=== PATIENT | female | born 1965 | race Caucasian/White ===

== ENCOUNTER 2018-02-21 09:49 | Emergency (ER) | payer BC ==
[~2018-02-21] VITALS: Ht 167.6 cm; Wt 88.0 kg
[2018-02-21] MEDS ORDERED: HYDROCODONE/APAP 10MG-325MG TAB PO ONE ×2 (10:45→11:30)
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
[2018-02-21 14:30] VITALS: BP 147/90
[2018-02-21] MEDS ORDERED: LORAZEPAM 1 MG TAB PO ONE (14:30)
[2018-02-21] MEDS ORDERED: KETOROLAC TROMETHAMINE 60 MG/2 ML VIAL IM ONE (14:30)
== END 2018-02-21 14:45 | disposition home or self-care (01) ==
LOC: ER 09:49
DX: M54.2 Cervicalgia (principal); S16.1XXA Strain of muscle, fascia and tendon at neck level, initial encounter; M54.6 Pain in thoracic spine; M54.5 Low back pain; V43.52XA Car driver injured in collision with other type car in traffic accident, initial encounter; Y92.488 Other paved roadways as the place of occurrence of the external cause
CPT/HCPCS: 70450; 72125; 99284

== ENCOUNTER → 2018-03-06 | Outpatient (CLI) | payer BC ==
[~2018-03-06] MED LIST: LIDOCAINE HCL 1% LOCAL INJ 20 ML VIAL ONE
--- NOTE | 2018-03-06 12:32 | Diagnostic Imaging Report ---
PROCEDURE:BIOPSY THYROID FNA COMPARISON:[facility], US, OUTSIDE ULTRASOUND IMAGES, 02/24/2018, 13:49. INDICATIONS:ABN THYROID US FINDINGS: Written and verbal consent were obtained. Patient was placed supine. Preliminary ultrasound identified a dominant suspicious appearing right thyroid nodule (previously measured on the outside imaging to be 3.5 x 3.3 x 2.5 cm). A safe entry route was identified and the overlying skin was prepped and draped in usual sterile fashion. Lidocaine 1% was used for local pain control. A total of 4 passes were performed utilizing 25 gauge needles in different locations of the right thyroid nodule. The patient tolerated the procedure well and there were no immediate post-procedural complications. CONCLUSION: Successful ultrasound-guided FNA of a dominant right thyroid nodule. Pathologist has deemed the samples adequate for diagnosis. Cj Terrell D.O. Dictated by: Cj Terrell D.O. on 03/06/2018 at 12:40 Electronically approved by: Cj Terrell D.O. on 03/06/2018 at 12:40
--- NOTE | 2018-03-06 16:49 | Diagnostic Imaging Report ---
PROCEDURE:ULTRASOUND GUIDANCE FOR RIGHT THYROID NODULE FNA Informed consent was obtained. Ultrasound was used to identify the large right thyroid nodule. The overlying skin was prepped and draped in the usual sterile fashion. Lidocaine 1% was infiltrated into the subcutaneous tissues for local anesthesia. CONCLUSION:Ultrasound guidance for FNA of the right thyroid nodule. Cj Terrell D.O. Dictated by: Cj Terrell D.O. on 03/06/2018 at 16:57 Electronically approved by: Cj Terrell D.O. on 03/06/2018 at 16:57
== END ==
LOC: US 10:44
PROVIDERS: ATTEND Family Medicine
DX: E04.1 Nontoxic single thyroid nodule (principal)
CPT/HCPCS: 10022; 76942; 88112; 88172; 88173; 88305; J2001

== ENCOUNTER 2019-10-01 05:34 | Observation (INO) | payer BC, OTHER ==
[~2019-10-01] VITALS: Ht 167.6 cm; Wt 89.8 kg
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
[2019-10-01] MEDS ORDERED: KETOROLAC TROMETHAMINE 30 MG/ML VIAL IV STA (05:50)
[2019-10-01 06:10] LABS: BASOPHILS # (AUTO) 0.1 (0.0-0.1); BASOPHILS % 0.8 % (0.0-1.0); EOSINOPHILS # (AUTO) 0.1 (0.0-0.4); EOSINOPHILS % 1.4 % (0.0-6.0); HEMATOCRIT 43.2 % (34.2-44.1); HEMOGLOBIN 14.8 g/dL (12.0-16.0); LYMPHOCYTES % 27.6 % (18.0-39.1); MEAN CORPUSCULAR HEMOGLOBIN 28.5 pg (28-32); MEAN CORPUSCULAR HGB CONC 34.3 g/dL (31-35); MEAN CORPUSCULAR VOLUME 83.2 fL (81-99); MONOCYTES # (AUTO) 0.5 (0.2-0.8); MONOCYTES % 6.6 % (4.4-11.3); NEUTROPHILS # (AUTO) 4.5 (2.1-6.9); NEUTROPHILS % 62.6 % (38.7-80.0); PLATELET COUNT 281 x10e3/uL (140-360); RED BLOOD COUNT 5.19 x10e6/uL (3.6-5.1); RED CELL DISTRIBUTION WIDTH 12.3 % (11.7-14.4)
--- NOTE | 2019-10-01 06:46 | Emergency Department Note ---
History of Present Illnes History of Present Illness Chief Complaint: Chest Pain History of Present Illness This is a 54 year old female presents with complaint of sternal chest pain for the last 3 days that waxes and wanes has been there more than it's been gone. Patient saw her PCP yesterday had EKG and lab work done. Patient denies cough denies shortness of breath but does report that the pain is worse when she tries to lay on her chest or when she takes a deep breath.. States the pain was there most all day yesterday and then eased up last night. And then about 7 hours ago the pain returned and has been there ever since. Historian: Patient Arrival Mode: Car Onset (how long ago): day(s) (3) Location: midsternal chest Quality: pain Radiation: non-radiation Severity: moderate Onset quality: gradual Duration (how long): day(s) (3) Timing of current episode: constant, other Progression: waxing and waning Chronicity: new Context: recent illness, recent surgery Relieving factors: none Exacerbating factors: none Associated symptoms: denies other symptoms Treatments prior to arrival: none (SKINNY PEÑA MD) Past Medical/Family History Physician Review I have reviewed the patient's past medical and family history. Any updates have been documented here. (SKINNY PEÑA MD) Past Medical History Recent Fever: No Clinical Suspicion of Infectio: No New/Unexplained Change in Ment: No Past Medical History: Diabetes, Cancer (breast, remission for 15 years) Other Surgery: bilateral mastectomy (SKINNY PEÑA MD) Social History Smoking Cessation: Never Smoker Counseling Performed: No Alcohol Use: None Any Illegal Drug Use: No TB Exposure/Symptoms: No Physically hurt or threatened: No (SKINNY PEÑA MD) Family History Family history of heart diseas: No Other family history htn (SKINNY PEÑA MD) Other Last Tetanus: unk Is patient up to date on immun: No Last Flu: DENIES Last Pneumovax: DENIES (SKINNY PEÑA MD) Review of Systems Review of Systems Constitutional: no symptoms EENTM: no symptoms Cardiovascular: as per HPI Respiratory: as per HPI Gastrointestinal: no symptoms Genitourinary: no symptoms Musculoskeletal: no symptoms Neurological: no symptoms Psychological: no symptoms Endocrine: no symptoms Hematological/Lymphatic: no symptoms Review of other systems All other systems reviewed and negative. (SKINNY PEÑA MD) Physical Exam Related Data Allergies: Uncoded Allergies: ERYTHROMYCIN (Allergy, Unknown, 02/21/18) Triage Vital Signs Vital Signs Date Time Temp Pulse Resp B/P (MAP) Pulse Ox O2 Delivery O2 Flow Rate FiO2 10/01/19 05:39 98.0 105 18 160/104 98 Vital signs reviewed: Yes (SKINNY PEÑA MD) Physical Exam CONSTITUTIONAL Constitutional: well-developed, well-nourished HENT HENT: normocephalic, atraumatic, oropharynx clear/moist, nose normal HENT L/R: left ext ear normal, right ext ear normal EYES Eyes: PERRL, conjunctivae normal NECK Neck: ROM normal PULMONARY Pulmonary: effort normal, breath sounds normal CARDIOVASCULAR Cardiovascular: regular rhythm, heart sounds normal, capillary refill normal, normal rate, other (chest pain is reproducible with palpation of sternum, and with deep inspiration.) GASTROINTESTINAL Abdominal: soft, nontender, bowel sounds normal GENITOURINARY Genitourinary: exam deferred SKIN Skin: warm, dry MUSCULOSKELETAL Musculoskeletal: ROM normal NEUROLOGICAL Neurological: alert, oriented x 3, no gross motor or sensory deficits PSYCHOLOGICAL Psychological: mood/affect normal, judgement normal (SKINNY PEÑA MD) Procedures 12 Lead ECG Interpretation Hide And Skin Classer: Interpreted by ED physician Date: Oct 01, 2019 Time: 05:49 Rhythm: sinus rhythm Rate: normal BPM: 93 QRS axis: normal ST segments normal: Yes T waves normal: Yes Other findings: no other findings Q waves: V1, V2, V3, V4 Clinical Impression: abnormal ECG (SKINNY PEÑA MD) Critical Care Time Subsequent provider I assumed direction of critical care for this patient from another provider of my specialty. (SKINNY PEÑA MD) Assessment & Plan Assessment & Plan Assessment & Plan Patient with chest pain for 3 days that waxes and wanes. Chest pain is reproducible on palpation of sternum. CBC, CMP, cardiac enzymes, BNP, chest x-ray, EKG, and d-dimer ordered to eval for myocardial infarction, pneumonia, electrolyte abnormality, pulmonary embolus (SKINNY PEÑA MD) Final Impression: (1) UNSTABLE ANGINA Assessment & Plan Admission for further workup and management (NUHA REYES, DO) Last Vital Signs Date Time Temp Pulse Resp B/P (MAP) Pulse Ox O2 Delivery O2 Flow Rate FiO2 10/01/19 05:39 98.0 105 18 160/104 98 (SKINNY PEÑA MD) Home Meds Reported Medications Lisinopril (LISINOPRIL) 10 Mg Tablet, 20 MG PO DAILY, #30 TAB 10/01/19 Metformin Hcl (METFORMIN HCL) 500 Mg Tablet, 500 MG PO BID, #60 TAB 10/01/19 Physician Attestation Provider Attestation 54-year-old female brought to the ED with complaints of atypical chest pain, uncontrolled diabetic and hypertensive. Patient with a high heart score. EKG and cardiac enzymes reviewed. Patient admitted for serial cardiac enzymes and cardiology evaluation. Case is discussed with Dr. Galvan for further workup and management. (NUHA REYES DO) SKINNY PEÑA MD Oct 01, 2019 06:46 NUHA REYES DO Oct 01, 2019 16:56
[2019-10-01 07:02] LABS: ALANINE AMINOTRANSFERASE 21 IU/L (0-55); ALBUMIN/GLOBULIN RATIO 1.2 (0.8-2.0); ALKALINE PHOSPHATASE 76 IU/L (40-150); ANION GAP 13.9 mmol/L (8-16); BLOOD UREA NITROGEN 18 mg/dL (7-26); BUN/CREATININE RATIO 22 (6-25); CALCIUM 9.4 mg/dL (8.4-10.2); CARBON DIOXIDE 22 mmol/L (22-29); CHLORIDE 103 mmol/L (98-107); CREATINE KINASE 87 IU/L (29-168); CREATININE, SERUM 0.82 mg/dL (0.57-1.11); EST GLOMERULAR FILTRATION RATE > 60 ML/MIN (60-); POTASSIUM 3.9 mmol/L (3.5-5.1); SODIUM 135 mmol/L (136-145)
[2019-10-01 07:04] LABS: GLUCOSE 402 mg/dL (74-118)
--- NOTE | 2019-10-01 07:06 | Diagnostic Imaging Report ---
EXAMINATION: CHEST SINGLE (NOT PORTABLE) COMPARISON: None INDICATION: ^chest pain ^20191001 ^0630 ^Y DISCUSSION: Frontal view of the chest obtained at 0640 hours. HEART AND MEDIASTINUM: The cardiomediastinal silhouette is unremarkable. LINES: None. LUNGS/PLEURA: The lungs are well inflated and clear. No pneumonia or pulmonary edema. No pleural effusion or pneumothorax. BONES AND SOFT TISSUES: No focal osseous lesion. The soft tissues are normal. IMPRESSION: No acute cardiopulmonary disease. Signed by: Dr. Lenny Rodriguez MD on 10/01/2019 7:03 AM
--- NOTE | 2019-10-01 07:40 | NUR ---
PATIENT UPDATED ON PLAN OF CARE, INCLUDING NEED FOR ADDITIONAL LAB RESULTS; PATIENT MEDICATED WITH TORADOL AT THIS TIME
[2019-10-01] MEDS ORDERED: ASPIRIN 81 MG CHEW TAB PO ONE ×2 (09:30→10:15)
[2019-10-01 09:38] LABS: CREATINE KINASE MB 3.8 ng/mL (0-5.0)
[2019-10-01] MEDS ORDERED: DEXTROSE 50% SYRINGE 50 ML IV PRN (11:00)
--- NOTE | 2019-10-01 11:03 | NUR ---
Patient arrived to the unit @ 1103 via wheelchair. Patient in stable condition, no s/s of distress noted. No pain voiced. Telemetry applied. Iv site asymptomatic and patient with transparent dressing C/D/I. Bed in lowest position and locked. Call light within reach.
--- OUTSIDE RECORDS SUMMARY | 2019-10-01 11:15 | XMS REPORT | Continuity of Care Document ---
Author Author [facility] t Organization [facility] Address [address] [place] [phone] Phone Unavailable Care Team Providers Care Tobacco Prevention Health Educator Name Role Phone Cristina PEÑA Attphys Unavailable VERONICA WESTBROOK Attphys Unavailable Pranay PEREZ Attphys Unavailable Problems This patient has no known problems. Allergies, Adverse Reactions, Alerts This patient has no known allergies or adverse reactions. Medications This patient has no known medications. Procedures This patient has no known procedures. Results Test Description Test Time Test Comments Results Result Comments Source CHEST SINGLE (NOT PORTABLE) 2019-10-01 06:57:00 [facility] [address] [place] [address] Patient Name: CHELSEY WHEAT MR #: [id number] : 1965 Age/Sex: 54/F Req #: [id number] Adm Physician: Ordered by: SKINNY PEÑA MD Report #: [id number] Location: ER Room/Bed: Procedure: DX/CHEST SINGLE (NOT PORTABLE) Exam Date: 10/01/19 Exam Time: 629 REPORT STATUS: Signed EXAMINATION: CHEST SINGLE (NOT PORTABLE) COMPARISON: None INDICATION: chest pain 20191001 Y DISCUSSION: Frontal view of the chest obtained at 0640 hours. HEART AND MEDIASTINUM: The cardiomediastinal silhouette is unremarkable. LINES: None. LUNGS/PLEURA: The lungs are well inflated and clear. No pneumonia or pulmonary edema. No pleural effusion or pneumothorax. BONES AND SOFT TISSUES: No focal osseous lesion. The soft tissues are normal. IMPRESSION: No acute cardiopulmonary disease. Signed by: Dr. Jt Rodriguez MD on 10/01/2019 7:03 AM Dictated By: JT RODRIGUEZ MD 2 Transcribed By: JUAN on 10/01/19702 COPY TO: SKINNY PEÑA MD US GUIDANCE FOR PROCEDURE 2018-03-06 16:57:00 [place] [address] Patient Name: CHELSEY WHEAT MR #: [id number] : 1965 Age/Sex: 52/F Req #: [id number] Adm Physician: Ordered by: VERONICA WESTBROOK DO Report #: [id number] Location: US Room/Bed: Procedure: [id number] US/US GUIDANCE FOR PROCEDURE Exam Date: 03/06/18 [...] VERONICA WESTBROOK DO FNA THYROID 2018-03-06 12:40:00 [place] [address] Patient Name: CHELSEY WHEAT MR #: [id number] : 1965 Age/Sex: 52/F Req #: [id number] [facility] Physician: Ordered by: VERONICA WESTBROOK DO Report #: [id number] Location: US Room/Bed: Procedure: [id number] US/FNA THYROID Exam Date: 03/06/18 Exam Time: 1115 REPORT STATUS: Signed PROCEDURE: BIOPSY THYROID FNA COMPARISON: [facility], US, OUTSIDE ULTRASOUND IMAGES, 02/24/2018, 13:49. INDICATIONS: [...] DO CT CERVICAL SPINE WO 2018-02-21 13:19:00 [place] [address] Patient Name: CHELSEY WHEAT MR #: [id number] : 1965 Age/Sex: 52/F Req #: [id number] Adm Physician: Ordered by: ANN MARIE PEREZ MD Report #: [id number] Location: ER Room/Bed: Procedure: [id number] CT/CT CERVICAL SPINE WO Exam Date: 02/21/18 [...] PEREZ MD CT BRAIN WO 2018-02-21 13:18:00 [place] [address] Patient Name: CHELSEY WHEAT MR #: [id number] : 1965 Age/Sex: 52/F Req #: [id number] Adm Physician: Ordered by: ANN MARIE PEREZ MD Report #: [id number] Location: ER Room/Bed: Procedure: [id number] CT/CT BRAIN WO Exam Date: 02/21/18 Exam [...] PM Dictated By: SABINO BARRAZA MD, MD 18 Transcribed By: JUAN on 02/21/181318 COPY TO: ANN MARIE PEREZ MD
[2019-10-01] MEDS ORDERED: LISINOPRIL10 MG PO (11:29)
[2019-10-01] MEDS ORDERED: METFORMIN HCL500 MG PO (11:29)
[2019-10-01 11:30] VITALS: BP 131/84
[2019-10-01 11:48] VITALS: BP 131/84
[2019-10-01 11:55] VITALS: BP 131/84
[2019-10-01] MEDS: INSULIN REGULAR, HUMAN 100 UNIT/1 ML 3ML VIAL SQ SCH ×3 (13:09→21:15)
[2019-10-01 16:00] VITALS: BP 121/75
[2019-10-01 16:14] LABS: CREATINE KINASE MB 3.8 ng/mL (0-5.0)
--- NOTE | 2019-10-01 19:28 | NUR ---
Completed bedside shift report and rounding with the oncoming night nurse. patient in stable condition, no s/s of distress noted. No pain voiced. Telemetry applied. Bed in lowest position and locked. Call light within reach.
--- NOTE | 2019-10-01 19:45 | Consultation ---
DATE OF CONSULTATION: 10/01/2019 Cardiology Consultation Note REQUESTING PHYSICIAN: Hunter Flood M.D. REASON FOR CONSULTATION: Chest pain. HISTORY OF PRESENT ILLNESS: This is a 54-year-old woman with history of diabetes mellitus and hypertension, who presents with complaints of chest pain. She reports she has been having palpitations for the last couple of months. In the last few days, she endorses chest tightness, which she describes as 11/10 in severity, associated with shortness of breath and occasional diaphoresis. There was no nausea or radiation. Reports the pain has comes and goes, but has been more or less constant. She reports that chest pain is improved with sitting up and worse with lying down. Of note, her blood pressure has been running high for the last few days as well, so she saw her primary care physician yesterday and was started on blood pressure medication. She denies any edema orthopnea or PND. REVIEW OF SYSTEMS: Negative except as per HPI. PAST MEDICAL HISTORY: 1. Hypertension. 2. Diabetes mellitus. PAST SURGICAL HISTORY: 1. Hysterectomy. 2. Bilateral mastectomies for breast cancer. 3. Tonsillectomy. ALLERGIES: PLEASE SEE EMR. MEDICATIONS: Please see medication list. SOCIAL HISTORY: No tobacco, alcohol, or illicit drugs. FAMILY HISTORY: Pertinent for mother with atrial fibrillation and ICD. PHYSICAL EXAMINATION: VITAL SIGNS: Temperature 98.1 degrees, pulse 86, respiratory rate 20, blood pressure 131/84, and oxygen saturation 99% on room air. GENERAL: Well-developed, well-nourished woman, awake and alert, in no distress. HEENT: Normocephalic, atraumatic. Pupils equal. No scleral icterus. NECK: Supple. No thyromegaly or cervical lymphadenopathy. No carotid bruits. LUNGS: Clear to auscultation bilaterally. No wheeze or crackles. CARDIOVASCULAR: Normal rate, regular rhythm. No murmur. Normal S1, S2. ABDOMEN: Soft, nontender. EXTREMITIES: No edema. NEUROLOGIC: Nonfocal exam. LABORATORY DATA: WBCs 7.24, hemoglobin 14.8, hematocrit 43.2, and platelets 281. Sodium 135, potassium 3.9, chloride 103, CO2 of 22, BUN 18, and creatinine 0.82. Troponin I 0.130. BNP 76.7. IMAGING DATA: EKG, normal sinus rhythm, anterior infarct age undetermined. Chest x-ray no acute cardiopulmonary disease. IMPRESSION: 1. Chest pain. 2. Hypertension. 3. Diabetes mellitus. RECOMMENDATIONS: No evidence of myocardial infarction thus far. Continue to trend troponin. Echocardiogram to evaluate for LV systolic function as well as regional wall motion abnormalities. Given her risk factors, ischemic evaluation is indicated with a nuclear stress test. Offered the patient plain treadmill. The patient refuses to treadmill as she had family member developed myocardial infarction during stress test previously. If the patient rules out for myocardial infarction and nuclear stress test cannot be done today, discussed having the patient followup in the office for outpatient nuclear stress test instead. In the meantime, continue current cardiac medications. Pain control per Primary. Check CRP as I suspect this may be pericarditis instead given the description of her symptoms. Further recommendations pending test results. Thank you for this consult. We will continue to follow. Teri Granda MD ABS/MODL /[id number]
[2019-10-01 20:18] VITALS: BP 135/86
[2019-10-01 21:56] VITALS: BP 135/86
[2019-10-02] VITALS (8 sets, daily range): BP systolic 124–188; BP diastolic 80–107
--- NOTE | 2019-10-02 03:44 | NUR ---
PATIENT C/O CHEST PAIN 12/05. SPOKE TO DR ASH. NEW ORDER RECEIVED.
[2019-10-02] MEDS ORDERED: ACETAMINOPHEN 325 MG TAB PO PRN (03:45)
[2019-10-02] MEDS: NITROGLYCERIN 0.4 MG SUBL SL PRN ×4 (04:00→07:25)
[2019-10-02 06:04] LABS: CHOL/HDL RATIO 4.7 (3.0-3.6)
[2019-10-02 06:24] LABS: CREATINE KINASE MB 2.3 ng/mL (0-5.0)
[2019-10-02] MEDS: INSULIN REGULAR, HUMAN 100 UNIT/1 ML 3ML VIAL SQ SCH ×4 (08:30→21:05)
[2019-10-02] MEDS ORDERED: REGADENOSON 0.4 MG/5 ML SYR IV ONE (12:34)
--- NOTE | 2019-10-02 15:19 | Progress Note ---
DATE: Internal Medicine Progress Note I came to my round. The patient is still in the stress test, not in the floor yet. We will follow up after the stress test is done. Cardiology is to follow with her. MD PACHECO Gregory/MAX /[id number]
[2019-10-02] MEDS ORDERED: ASPIRIN 325 MG TAB PO ONE (16:30)
--- NOTE | 2019-10-02 16:45 | History and Physical ---
HISTORY OF PRESENT ILLNESS: A 54 years old woman with past medical history positive for diabetes and hypertension, came with chest pain. She is saying she had palpitation for a couple of months, 10/10 severity, associated with shortness of breath and diaphoresis. No nausea. No radiation of pain. The chest pain comes and goes, it is all over the chest on the right than the left. The chest pain is improved with sitting up and goes with lying down. REVIEW OF SYSTEMS: CARDIOVASCULAR: Chest pain which is generalized in the chest with no radiation. No palpitation. RESPIRATORY: No shortness of breath. No cough. GASTROINTESTINAL: No nausea, vomiting. No diarrhea. GENITOURINARY: No frequency. No dysuria. ALLERGIES: LISTED IN CHART. SOCIAL HISTORY: She does not smoke, does not drink. MEDICAL HISTORY: Hypertension and diabetes. PAST SURGICAL HISTORY: Hysterectomy, bilateral mastectomy for breast cancer, and tonsillectomy. PHYSICAL EXAMINATION: HEART: Regular rhythm. Normal S1, S2 sound. LUNGS: Clear bilaterally. ABDOMEN: Soft. EXTREMITIES: No edema. LABORATORY DATA: On the CBC; white blood count 7.24, hemoglobin 14.8, hematocrit 43.2, and platelet count 281,000. Sodium 135, potassium 3.9, chloride 103, CO2 of 22, BUN 18, creatinine 0.82. Troponin 0.130. BNP 76.7. EKG; normal sinus rhythm, anterior infarct of age undetermined. Chest x-ray, no acute cardiopulmonary disease. FINAL IMPRESSION: 1. Chest pain. 2. Hypertension. 3. Uncontrolled diabetes mellitus type 2. 4. Obesity. PLAN OF TREATMENT: Troponins are negative. Echocardiogram has been ordered. Chest x-ray has been done, the report is pending. We are going to resume the rest of the medication regimen that she has been taking. She is taking Tylenol 650 mg q.6 hours as needed for mild pain. Continue to monitor blood sugar before meals and at bedtime. Metoprolol 25 mg twice a day, nitroglycerin 0.4 mg q.5h minutes p.r.n. for chest pain. Diet of course is going to be diabetic diet. She is on lisinopril 20 mg daily, metformin 500 mg daily, but we are going to hold on the metformin because of the possibility of cardiac cath if stress testing is positive. MD PACHECO Gregory/MAX /[id number]
[2019-10-02] MEDS ORDERED: HEPARIN SOD (PORCINE) 1000 UNIT/ML 30ML ONE (16:51)
[2019-10-02] MEDS ORDERED: BIVALRIUDIN 250 MG/VIAL VIAL IV ONE (16:51)
[2019-10-02] MEDS ORDERED: MIDAZOLAM HCL 2 MG/2 ML VIAL ONE (16:51)
[2019-10-02] MEDS ORDERED: LIDOCAINE HCL 2% LOCAL 20 ML VIAL ONE (16:52)
[2019-10-02] MEDS ORDERED: SODIUM CHLORIDE 0.9% 50ML 0 ML ONE (16:52)
[2019-10-02] MEDS ORDERED: FENTANYL CITRATE/PF 100MCG/2 ML INJ ONE (16:52)
[2019-10-02] MEDS ORDERED: SODIUM CHLORIDE 0.9% 1000ML 1,000 ML ONE (16:53)
[2019-10-02] MEDS ORDERED: HEPARIN SOD/SOD CHLORIDE 2,000 ML ONE (16:53)
[2019-10-02] MEDS ORDERED: IOPAMIDOL 370 MG/ML 200 ML INFUS..BTL INJ ONE (16:53)
[2019-10-02] MEDS ORDERED: NITROGLYCERIN/D5W 200 MCG/ML 250 ML ONE (16:53)
--- NOTE | 2019-10-02 17:10 | NUR ---
Patient left the floor to go to tutorial laboratory supervisor
[2019-10-02] MEDS ORDERED: ONDANSETRON HCL INJ 2MG/ML 2ML 2 MG/ML VIAL ONE (18:40)
[2019-10-02] MEDS ORDERED: CLOPIDOGREL BISULFATE 75 MG TAB ONE (18:40)
[2019-10-02] MEDS ORDERED: HYDRALAZINE HCL 20 MG/ML VIAL ONE (18:43)
--- NOTE | 2019-10-02 19:19 | NUR ---
Patient is back to the floor from catheterization laboratory technician. Right groin site was checked with night nurse and catheterization laboratory technician nurse. Site is clean and dry , no hematoma. patient understands she has to remain flat for two hours. Call light in reach
[2019-10-02] MEDS: METOPROLOL TARTRATE 25 MG TAB PO SCH (20:33)
[2019-10-02] MEDS: ATORVASTATIN 20 MG TAB PO SCH ×2 (20:33→21:00)
[2019-10-02] MEDS ORDERED: INSULIN GLARGINE 100 UNITS/ML VIAL SQ SCH (21:00)
[2019-10-03] VITALS: BP 154/101
[2019-10-03] MEDS: METOPROLOL TARTRATE 25 MG TAB PO SCH ×2 (00:10→08:17)
--- NOTE | 2019-10-03 01:01 | Operative Report ---
DATE OF PROCEDURE: 10/02/2019 SURGEON: Robbie Henriquez MD INDICATION FOR PROCEDURE: Unstable angina, abnormal stress test. PREPROCEDURE ASSESSMENT: The risks, benefits, and alternatives to the treatment were explained to the patient prior to the procedure. The patient was deemed to be an appropriate candidate for moderate sedation. MEDICATIONS: Please see nursing notes for medications administered throughout the procedure. PROCEDURES PERFORMED: 1. Coronary angiography. 2. Left heart catheterization. 3. PCI to the diagonal branch with drug-eluting stent x1. 4. Femoral angiography. 5. Vascular closure device. 6. Moderate sedation x60 minutes. PROCEDURE IN DETAILS: The patient was brought to the cardiac catheterization laboratory in a fasting state. Right groin was prepped and draped in a sterile fashion. A 6-Egyptian sheath was inserted in the right common femoral artery using modified Seldinger technique under fluoroscopic guidance. Coronary angiography was performed using JL4 and JR4 5-Egyptian catheters. Left heart catheterization was performed using a JR4 catheter. Coronary angiography demonstrated thrombotic occlusion of a very large diagonal one branch. We decided to proceed with PCI. PCI of the diagonal one: EBU 3.75 guide catheter was used, which provided adequate support. Lesion was wired using a run-through wire. The lesion was predilated using a 2.5 x 12 mm balloon at 6 atmospheres. Stenting was performed using a 2.5 x 15 mm drug-eluting balloon. Post dilation was performed using the stent balloon at 20 atmospheres proximally. This resulted in excellent angiographic result without any residual dissection, thrombus, or spasm and NAIDA-3 flow. All catheters were removed over a wire. Femoral angiography was performed, which showed arteriotomy site in the right common femoral artery above the bifurcation. This site was deemed to be amenable for vascular closure device. A 6-Egyptian sheath was removed and the access site was closed using a ProGlide vascular closure device without any significant problems. This resulted in excellent hemostasis. A CT near 300 was maintained throughout the procedure using heparin. Antiplatelet therapy was performed at the end of the case using aspirin 325 and Plavix 600 mg loading doses. The patient tolerated the procedure well. There were no immediate complications. SIGNIFICANT FINDINGS: 1. Left main coronary artery: Very short to nonexistent left main. No significant disease. 2. LAD: Large vessel goes to the apex. Very tortuous distally. Large diagonal one branch with 100% thrombotic occlusion in the proximal portion was also 40% nonobstructive CAD of the mid LAD just after the origin of the diagonal branch. Otherwise, there is no significant disease in the LAD. 3. Left circumflex: Large nondominant left circumflex with two significant OM branches, tortuous distally, but no significant CAD. 4. RCA: Large dominant RCA with a large PDA and a medium size RPL systems, tortuous branch vessel distally. Mild plaquing otherwise in the mid RCA. 5. LVEDP of 14 mmHg. No gradient across the aortic valve. GRAFTS AND IMPLANTS: Drug-eluting stent x1 and ProGlide vascular closure device. SPECIMEN REMOVED: None. COMPLICATIONS: None. ESTIMATED BLOOD LOSS: 20 mL. FINAL RECOMMENDATIONS: 1. Aspirin 81 mg for life and Plavix 75 mg daily for at least 1 year. 2. Follow up in the office 1-2 weeks post procedure. MD AMANDA Bray/MAX /[id number]
[2019-10-03 04:00] VITALS: BP 139/102
[2019-10-03 05:30] VITALS: BP 149/99
[2019-10-03 07:21] VITALS: BP 139/101
[2019-10-03] MEDS: INSULIN REGULAR, HUMAN 100 UNIT/1 ML 3ML VIAL SQ SCH (08:18)
[2019-10-03] MEDS ORDERED: LISINOPRIL 10 MG TAB PO SCH (09:00)
--- NOTE | 2019-10-03 10:35 | NUR ---
2 DAY OBS. S/P HEART CATH W STENT 10/02/2019 NOTED BP 139/101 AND HR 111. DISCUSSED W BEDSIDE RN; PAN. STATES PT STARTED ON METOPROLOL AND PRINIVIL. STATES WILL DC HOME LATER IF STABLE.
[2019-10-03 11:14] VITALS: BP 118/78
[2019-10-03] MEDS ORDERED: INSULIN LISPRO 100 UNIT/1 ML 3ML VIAL SQ SCH (16:30)
--- NOTE | 2019-10-04 06:01 | Discharge Summary ---
The patient is a 54-year-old female, who had a past medical history positive for diabetes mellitus, hypertension, came here with chest pain. She had an adenosine Cardiolite stress test, which was normal. She had a cardiac catheterization done by Dr. Henriquez, which found a large diagonal branch with 100% thrombotic occlusion in the proximal portion 40%. No obstructive coronary artery disease with nil LAD. The rest of the coronary arteries were no significant abnormality. The patient had a stent placed apparently. The patient going home today. PHYSICAL EXAMINATION: HEART: Showed regular rhythm. Normal S1, S2 sound. LUNGS: Clear bilaterally. ABDOMEN: Soft. EXTREMITIES: Show no edema. LABORATORY DATA: On the blood work, we have CBC; white count 7.24, hemoglobin 14.8, hematocrit 43.2, and platelet count 281,000. Last blood sugar is 271. Cardiac enzymes were negative. On the BMP; sodium 135, potassium 3.9, chloride 103, CO2 of 22, BUN 18, creatinine 0.2. IMPRESSION: 1. Coronary artery disease with 100% stenosis on the diagonal branch of the LAD. 2. Uncontrolled diabetes mellitus type 2. 3. Hypercholesterolemia. PLAN OF TREATMENT: She is going to be discharged home with aspirin 81 mg daily, Plavix 75 mg daily. She is going to be taking Lantus insulin 10 units at bedtime and Humalog 5 units before each meal. She is going to be on lisinopril 20 mg daily, metoprolol 25 mg twice a day, and also Lipitor 40 mg daily. The patient going to follow with Dr. Henriquez, Cardiology as an outpatient. MD PACHECO Gregory/SAÚLL /[id number]
--- NOTE | 2019-10-15 21:40 | Myoview Stress Test ---
DATE OF STUDY: 10/02/2019 08:16:00 Stress Test - Treadmill ONLY PROCEDURE TITLE: Rest stress single isotope SPECT imaging with pharmacologic stress and gated SPECT imaging. INDICATION: Chest pain. PROCEDURE IN DETAIL: Pharmacologic stress testing was performed with regadenoson per the usual protocol. The heart rate was 83 beats per minute at rest and increased to 125 beats per minute at stress. Baseline blood pressure was 164/106 and increased to 166/85. Baseline 12-lead electrocardiogram showed normal sinus rhythm. Throughout the stress protocol, there were no ST changes suggestive of ischemia. There were no arrhythmias noted throughout the stress protocol or during recovery. Myocardial perfusion imaging was performed at rest following injection of 10.56 millicuries of tetrofosmin. At peak pharmacologic effect, the patient was injected with 32.86 millicuries of tetrofosmin. Gated post-stress tomographic imaging was performed. FINDINGS: The study quality is fair. The left ventricular cavity appears dilated at both rest and stress. SPECT images demonstrate a medium-sized severe fixed perfusion defect. The gated imaging reveals [id number] hypokinesis with severe hypokinesis to akinesis of the anterior wall. Left ventricular ejection fraction was calculated to be 42%. IMPRESSION: Myocardial perfusion imaging is abnormal. There is a medium area of transmural scar in the anterior wall. The overall left ventricular systolic function was [id number] depressed with a calculated ejection fraction of 42%. DO JANE Weber/SAÚLL /[id number]
== END 2019-10-03 13:20 | disposition home or self-care (01) ==
LOC: ER 05:34 → ERHOLD 10:17 → MED/SURG2 11:15
DX: I25.110 Atherosclerotic heart disease of native coronary artery with unstable angina pectoris (principal); E78.00 Pure hypercholesterolemia, unspecified; Z95.5 Presence of coronary angioplasty implant and graft; E11.65 Type 2 diabetes mellitus with hyperglycemia; I10 Essential (primary) hypertension; E66.9 Obesity, unspecified; Z11.59 Encounter for screening for other viral diseases
CPT/HCPCS: 36415 ×3; 71045; 78452; 80053; 80061; 82550 ×2; 82553 ×2; 82948 ×3; 83880; 84484 ×2; 85025; 85379; 86140; 87635; 92928; 93005 ×2; 93017; 93306; 93454; 99284; A9502; C1725; C1760; C1769; C1874; G0378 ×3; J0360; J1644; J1815; J1817 ×2; J1885; J2001; J2250; J2405; J2785; J3010; J7030; Q9967; 99152; 99153; J0583; U0002